=== PATIENT | female | born 1990 | race Two or more races ===

== ENCOUNTER 2016-04-26 09:30 | Emergency (ER) | payer SELFPAY ==
[2016-04-26] MEDS ORDERED: ALBUTEROL/IPRATROPIUM 2.5/0.5 MG 3 ML/EACH DOSE ONE (10:19)
== END 2016-04-26 11:13 | disposition home or self-care (01) ==
LOC: ED 09:30
DX: J06.9 Acute upper respiratory infection, unspecified (principal); J98.01 Acute bronchospasm